=== PATIENT | female | born 1985 | race Caucasian/White ===

== ENCOUNTER → 2017-08-03 | Outpatient (CLI) | payer MEDICAID | LOC: FIMAGING 13:28 | PROVIDERS: ATTEND Physician Assistant | DX: S93.491A Sprain of other ligament of right ankle, initial encounter (principal); M76.71 Peroneal tendinitis, right leg; S86.311A Strain of muscle(s) and tendon(s) of peroneal muscle group at lower leg level, right leg, initial encounter; Y93.9 Activity, unspecified ==

== ENCOUNTER 2017-11-03 10:36 | Day surgery (SDC) | payer MEDICAID ==
[~2017-11-03 10:36] MED LIST: BUPIVACAINE 0.5% 10 ML SDV ONE; CLINDAMYCIN 900 MG/DEXTROSE 50 ML IV ONE
[2017-11-03] MEDS ORDERED: LR 1,000 ML IV ONE (11:06)
[2017-11-03 11:12] VITALS: PULSE 88
[2017-11-03] MEDS ORDERED: CLINDAMYCIN 900 MG/DEXTROSE/50 ML BAG IV ONE (11:40)
--- NOTE | 2017-11-03 11:40 | PDHPUP ---
History & Physical Update H&P update statement: This history and physical update is based on an assessment of the patient which was completed after admission or registration (within 24 hours), but prior to the surgery/procedure. H&P update: H&P reviewed & patient examined, no change in patient's condition since H&P completed
[2017-11-03] MEDS ORDERED: MIDAZOLAM 2 MG/2 ML VIAL ONE (12:01)
[2017-11-03] MEDS ORDERED: ROPIVACAINE HCL 150 MG/30 ML INJ ONE (12:04)
[2017-11-03] MEDS ORDERED: ONDANSETRON 4 MG/2 ML VIAL ONE (12:20)
[2017-11-03] MEDS ORDERED: DEXAMETHASONE 4 MG/ML VIAL ONE ×2 (12:20)
[2017-11-03] MEDS ORDERED: LIDOCAINE 2% 5 ML SDV ONE (12:21)
[2017-11-03] MEDS ORDERED: PROPOFOL 200 MG/20 ML VIAL ONE (12:21)
[2017-11-03] MEDS ORDERED: fentaNYL 100 MCG/2 ML INJ ONE ×2 (12:30→14:29)
[2017-11-03] MEDS ORDERED: MIDAZOLAM 2 MG/2 ML VIAL IVP ONE (12:50)
--- NOTE | 2017-11-03 12:50 | PDANEPAE ---
ANE History of Present Illness Right Ankle Scope ANE Past Medical History - Cardiovascular History Hx Hypertension: No Hx Arrhythmias: No Hx Chest Pain: No Hx Coronary Artery / Peripheral Vascular Disease: No Hx CHF / Valvular Disease: No Hx Palpitations: No - Pulmonary History Hx COPD: No Hx Asthma/Reactive Airway Disease: No Hx Recent Upper Respiratory Infection: No Hx Oxygen in Use at Home: No Hx Sleep Apnea: No Sleep Apnea Screening Result - Last Documented: Negative - Neurologic History Hx Cerebrovascular Accident: No Hx Seizures: No Hx Dementia: No Neurologic History Comment: Migraines - Endocrine History Hx Diabetes: No - Renal History Hx Renal Disorders: Yes 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 - Cancer History Hx Cancer: No - Congenital Disorder History Hx Congenital Disorders: Yes Congenital History Comment: kidney - GI History Hx Gastrointestinal Disorders: Yes Gastrointestinal History Comment: GERD - Surgical History Prior Surgeries: D&C x 2 ANE Review of Systems Review of systems is: negative Review of Systems: - Exercise capacity METS (RN): 4 METS ANE Patient History - Allergies Allergies/Adverse Reactions: venom-honey bee [bee venom (honey bee)] Allergy (Severe, Verified 11/15/14 11:30 ) Anaphylaxis acetaminophen Allergy (Intermediate, Verified 10/21/17 15:07) Hives wheat Allergy (Intermediate, Verified 11/15/14 11:30) Itching amoxicillin Allergy (Verified 11/15/14 11:30) Penicillins Allergy (Verified 11/15/14 11:30) Anaphylaxis - Home Medications Home Medications: Estradiol 1 mg 10/21/17 [Last Taken 1 Day Ago ~11/02/17] Lidocaine 5% 10/21/17 [Last Taken 2 Days Ago ~11/01/17] MIRENA 10/21/17 [Last Taken 11/03/17] Oxycodone Ir (*) 5 10/21/17 [Last Taken 10/18/17] Tizanidine HCl 10/21/17 [Last Taken 11/01/17] clonazePAM [Clonazepam] 1 mg PO 11/03/17 [Last Taken 1 Day Ago ~11/02/17] - NPO status NPO Since - Liquids (Date): 11/03/17 NPO Since - Liquids (Time): 10:15 NPO Since - Solids (Date): 11/02/17 NPO Since - Solids (Time): 21:30 - Smoking Hx Smoking Status: Current some day smoker - Family Anes Hx Family Hx Anesthesia Complications: none ANE Labs/Vital Signs - Vital Signs Blood Pressure: 100/75 Heart Rate: 88 Respiratory Rate: 17 O2 Sat (%): 96 Height: 160.02 cm Weight: 63.503 kg ANE Physical Exam - Airway Neck exam: FROM Mallampati Score: Class 2 Mouth exam: normal dental/mouth exam - Pulmonary Pulmonary: clear to auscultation - Cardiovascular Cardiovascular: regular rate and rhythym - ASA Status ASA Status: I ANE Anesthesia Plan Anesthesia Plan: GA w LMA
[2017-11-03] MEDS ORDERED: fentaNYL 100 MCG/2 ML INJ IVP PRN (12:55)
[2017-11-03] MEDS ORDERED: NALOXONE HCL 0.4 MG/ML INJ IVP PRN (12:55)
[2017-11-03] MEDS ORDERED: ALBUTEROL 3 ML DEYVIAL IH PRN (12:55)
[2017-11-03] MEDS ORDERED: HYDROmorphONE/DILAUDID 1 MG/ML INJ IVP PRN (12:55)
[2017-11-03] MEDS ORDERED: ONDANSETRON 4 MG/2 ML VIAL IVP PRN (12:55)
--- NOTE | 2017-11-03 13:50 | POSTOPPROG ---
Post Op Note Date of Operation: 11/03/17 Surgeon: Edson Friedman Anesthesiologist: Araceli Anesthesia: GET(General Endotracheal) Pre-op Diagnosis: R ankle impingement, peroneal tendinitis Procedure: R ankle scope, peroneal debridment, retinacular repair Inf/Abcess present in the surg proc area at time of surgery?: No EBL: 50-100
--- NOTE | 2017-11-03 14:23 | GOP ---
[f rep st] OPERATIVE REPORT DATE OF OPERATION: 11/03/2017 SURGEON: Edson Friedman MD TAIL WORKER: None. ANESTHESIA: General. PREOPERATIVE DIAGNOSIS: Right ankle synovitis, impingement. Right ankle peroneal tendinitis. Right ankle peroneal tendon subluxation, instability. POSTOPERATIVE DIAGNOSIS: Right ankle synovitis, impingement. Right ankle peroneal tendinitis. Right ankle peroneal tendon subluxation, instability. PROCEDURE PERFORMED: 1. Right ankle arthroscopy with extensive debridement. 2. Right ankle peroneal tendon debridement with tubularization repair of brevis tendon. 3. Right ankle peroneal retinacular reconstruction. FINDINGS: SPECIMENS: None. ESTIMATED BLOOD LOSS: 5 mL. INDICATIONS: This is a 32-year-old female with symptomatic peroneal instability , peroneal tendinitis, ankle synovitis, and impingement. She did have failed conservative management including physical therapy, observation, anti- inflammatories, and ice. She elected to proceed with surgery. She does have some nerve-related pain as well, which I told her I did not think would improve with the surgery. She was taking narcotic pain medication for this but was able to get off this before the surgery, and we elected to proceed with surgery. Informed consent was obtained. All questions were answered preoperatively. I counseled her on risks of nerve injury, incomplete pain relief, instability, need for further surgery, tendon rupture, continued pain. DESCRIPTION OF PROCEDURE: Was taken to the operating suite, sterilely prepped and draped in normal fashion. Time-out was performed verifying the site, side, location, agreement with the team. Tourniquet was utilized. After Esmarch exsanguination, joint was inflated. I established a medial portal and then a lateral working portal with direct visualization in the skin only. She had significant synovitis anterior, medial , and lateral gutters of the ankle, and this was debrided with a shaver. She does have impingement and scar tissue which was also debrided. I tested her for syndesmosis, which was stable, and there was no ability to separate this. I also did an arthroscopic drawer test and evaluate her talus, and this was stable. She had otherwise intact cartilage with some grade 1 fissuring on the tibia and talus, but no obvious osteochondral defects. I removed the distraction and took it through range of motion. She did not have pins. Removed the scope. Changed gloves, performed an open incision over the distal fibula posteriorly. Opened up the retinacular sheath out the bone. Exposed the tendons. There was significant synovitis around both tendons, which was debrided. Peroneus longus brevis was flattened with a partial longitudinal tear. This was debrided, tubularized with 0 Vicryl. I then placed a suture anchor in the fibula, Arthrex. I then used this to tighten up the retinaculum, performing the reconstruction, and the retinaculum was oversewn with #1 Vicryl. This was stable. She did not sublux. Wounds were closed with 2-0 Vicryl, 3- 0 Quill, and Dermabond. She was taken to PACU in stable condition in a splint. IMPLANTS: Arthrex suture anchor with #1 FiberWire. COMPLICATIONS: None. DRAINS: None. CONDITION: Stable. /[id number]/MODL MTDD
[2017-11-03] MEDS ORDERED: oxyCODONE IR 5 MG TAB PO PRN (14:38)
[2017-11-03 14:47] VITALS: RESP 20
[2017-11-03 15:09] VITALS: BP 97/66; TEMP 97.7; O2SAT 97
== END 2017-11-03 15:17 | disposition home or self-care (01) ==
LOC: FSGY 10:36
PROVIDERS: ATTEND Orthopaedic Surgery
PROC: 0LBS0ZZ Excision of Right Ankle Tendon, Open Approach (ICD-10-PCS; principal; 2017-11-03 12:15)
PROC: 0LQV0ZZ Repair Right Foot Tendon, Open Approach (ICD-10-PCS; principal; 2017-11-03 12:15)
PROC: 0LQ Tendons, Repair (ICD-10-PCS; principal; 2017-11-03 12:15)
DX: M25.871 Other specified joint disorders, right ankle and foot (principal); M65.871 Other synovitis and tenosynovitis, right ankle and foot; M77.51 Other enthesopathy of right foot and ankle; M25.371 Other instability, right ankle; S84.10XD Injury of peroneal nerve at lower leg level, unspecified leg, subsequent encounter; S93.401D Sprain of unspecified ligament of right ankle, subsequent encounter; G90.50 Complex regional pain syndrome I, unspecified
CPT/HCPCS: C1713; J1100; J2250; J2405; J2704; J2795; J3010